=== PATIENT | female | born 1940 | race Caucasian/White ===

== ENCOUNTER → 2017-08-21 | Outpatient (CLI) | payer OTHER ==
[~2017-08-21] MED LIST: BONIVA150 MG PO; CENTRUM SILVER1 EAC4 PO; CIPROFLOXACIN500 M1 PO; COQ-10100 MG PO; D3 DOTS2000 UNIT PO; FISH OIL 1,001000 M1 PO; FLAGYL500 MG PO; FLAX SEED OIL1000 MG PO; FOLBIC RF TABL1 EACH PO; LEXAPRO 10 MG T10 MG PO; LIPITOR10 MG PO; NOLVADEX20 MG PO; NORCO 5-325 TA1 EACH PO; PRILOSEC 20 MG20 MG PO; PROLIA60 MG/1 ML SQ; SIMBRINZA 1%-0.28 ML OP; TIMOLOL; VESICARE 5 MG TA5 MG PO; VITAMIN E100 UNI1 PO; WELLBUTRIN SR150 MG PO; ZIOPTAN 0.00151 EACH OP
== END ==
LOC: RAD 01:11
DX: Z12.31 Encounter for screening mammogram for malignant neoplasm of breast (principal)

== ENCOUNTER → 2018-11-01 | Outpatient (CLI) | payer OTHER | LOC: RAD 01:57 | DX: Z12.31 Encounter for screening mammogram for malignant neoplasm of breast (principal) ==